=== PATIENT | female | born 1945 | race Hispanic/Latino ===

== ENCOUNTER 2017-03-18 13:42 | Outpatient (CLI) | payer OTHER ==
--- NOTE | 2017-03-18 16:18 | XRay Report ---
XRAY LEFT KNEE 4 THREE VIEWS: 03/18/17 CLINICAL: Left knee pain. Surgery 2 weeks ago. 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 No apparent loosening. Moderate osteopenia. No fracture or dislocation.No joint effusion.Normal soft tissues. IMPRESSION: Negative study status post total joint replacement.
== END 2017-03-18 13:43 | disposition home or self-care (01) ==
LOC: SPVIMAG 13:42
PROVIDERS: ATTEND Orthopaedic Surgery Sports Medicine
DX: M85.862 Other specified disorders of bone density and structure, left lower leg (principal); Z96.652 Presence of left artificial knee joint